=== PATIENT | male | born 1945 | race Caucasian/White ===

== ENCOUNTER 2016-10-22 16:19 | Emergency (ER) | payer MEDICARE, BC ==
[~2016-10-22] VITALS: Ht 182.9 cm; Wt 78.0 kg
[2016-10-22 16:23] VITALS: BP 138/65; PULSE 104; RESP 16; TEMP 98.7; O2SAT 99
--- NOTE | 2016-10-22 17:51 | PD ---
HPI Chief Complaint: Abnormal Results Time Seen by Provider: 17:43 Travel History International Travel<30 days: No Contact w/Intl Traveler<30days: No Traveled to known affect area: No History of Present Illness HPI This 71-year-old male was referred here by urgent care center because of a high white count. This gentleman has been having trouble with his left leg for a couple of weeks. He is visiting here from [place]. He flew from [place] a few days ago. He has developed redness and swelling of his left foot and ankle. He has seen a stock sheets cleaner inspector is [place] and was put in a walking boot. He had increasing pain on Saturday and the foot was quite red and swollen. He went to urgent care center and was started on Bactrim, Indocin and Ultram. He says the foot has gotten a bit better since then. There were unable to do blood work on Saturday so he was sent today for blood work. They have sent a copy of the blood work to us. His hemoglobin is 8.9 with a white count of 35, 000. He has 86% lymphs, 3% monocytes and absolute neutrophil count of 3000. His C-reactive protein is 145 and his Westergren sedimentation rate is 90. There is been no weight loss. He has had good exercise tolerance PFSH Social History Tobacco Use: No Allergies-Medications (Allergen,Severity, Reaction): Coded Allergies: No Known Allergies (Unverified , 10/22/16) Reported Meds & Prescriptions Reported Meds & Active Scripts Active Reported Tramadol (Tramadol HCl) 50 Mg Tab 50 Mg PO Q8H PRN Indomethacin 50 Mg Cap 50 Mg PO TID Take with food, milk, or antacids to decrease stomach adverse effects. Bactrim DS (Sulfamethoxazole-Trimethoprim) 800-160 Mg Tab 1 Tab PO BID Review of Systems General / Constitutional: No: Fever, Chills Eyes: No: Diploplia, Blurred Vision HENT: No: Headaches, Vertigo Cardiovascular: No: Chest Pain or Discomfort, Palpitations Respiratory: No: Cough, Shortness of Breath Gastrointestinal: No: Nausea, Vomiting Genitourinary: No: Urgency Musculoskeletal: Positive: Myalgias, Arthralgias, Pain Skin: Positive Rash Neurologic: No: Weakness, Dizziness Physical Exam Narrative GENERAL: Well-developed male SKIN: Focused skin assessment warm/dry. HEAD: Atraumatic. Normocephalic. EYES: Pupils equal and round. No scleral icterus. No injection or drainage. ENT: No nasal bleeding or discharge. Mucous membranes pink and moist. NECK: Trachea midline. No JVD. CARDIOVASCULAR: Regular rate and rhythm. No murmur appreciated. RESPIRATORY: No accessory muscle use. Clear to auscultation. Breath sounds equal bilaterally. GASTROINTESTINAL: Abdomen soft, non-tender, nondistended. Hepatic and splenic margins not palpable. MUSCULOSKELETAL: No obvious deformities. No clubbing. No cyanosis. No edema. There is erythema of the left foot and ankle. There appears to be some swelling most prominent at the ankle. He is able to flex and extend the ankle NEUROLOGICAL: Awake and alert. No obvious cranial nerve deficits. Motor grossly within normal limits. Normal speech. PSYCHIATRIC: Appropriate mood and affect; insight and judgment normal. Data Data Last Documented VS Vital Signs Date Time Temp Pulse Resp B/P Pulse Ox O2 Delivery O2 Flow Rate FiO2 10/22/16 16:23 98.7 104 16 138/65 99 Orders Complete Blood Count With Diff (10/22/16 17:44) Comprehensive Metabolic Panel (10/22/16 17:44) Blood Culture (10/22/16 17:44) Urinalysis - C+S If Indicated (10/22/16 17:44) Chest, Single Ap (10/22/16 17:44) Labs Laboratory Tests Test 10/22/16 10/22/16 18:00 18:10 Urine Collection Type CLEAN CATCH Urine Color YELLOW Urine Turbidity CLEAR Urine pH 6.0 Urine Specific [place] 1.022 Urine Protein NEG mg/dL Urine Glucose (UA) NEG mg/dL Urine Ketones NEG mg/dL Urine Occult Blood NEG Urine Nitrite NEG Urine Bilirubin NEG Urine Leukocyte Esterase NEG Urine WBC 0-2 /hpf Microscopic Urinalysis Comment CULT NOT INDICATED Urine Collection Time 1800 White Blood Count 42.8 TH/MM3 Red Blood Count 2.59 MIL/MM3 Hemoglobin 8.7 GM/DL Hematocrit 26.1 % Mean Corpuscular Volume 101.1 FL Mean Corpuscular Hemoglobin 33.5 PG Mean Corpuscular Hemoglobin 33.1 % Concent Red Cell Distribution Width 15.6 % Platelet Count 377 TH/MM3 Mean Platelet Volume 7.8 FL Neutrophils (%) (Auto) 6.5 % Lymphocytes (%) (Auto) 88.4 % Monocytes (%) (Auto) 4.0 % Eosinophils (%) (Auto) 0.1 % Basophils (%) (Auto) 1.0 % Neutrophils # (Auto) 2.8 TH/MM3 Lymphocytes # (Auto) 37.9 TH/MM3 Monocytes # (Auto) 1.7 TH/MM3 Eosinophils # (Auto) 0.0 TH/MM3 Basophils # (Auto) 0.4 TH/MM3 CBC Comment AUTO DIFF Sodium Level 139 MEQ/L Potassium Level 4.8 MEQ/L Chloride Level 106 MEQ/L Carbon Dioxide Level 24.8 MEQ/L Anion Gap 8 MEQ/L Blood Urea Nitrogen 17 MG/DL Creatinine 1.10 MG/DL Estimat Glomerular Filtration 66 ML/MIN Rate Random Glucose 127 MG/DL Calcium Level 8.9 MG/DL Total Bilirubin 0.2 MG/DL Aspartate Amino Transf 44 U/L (AST/SGOT) Alanine Aminotransferase 57 U/L (ALT/SGPT) Alkaline Phosphatase 126 U/L Total Protein 7.7 GM/DL Albumin 2.8 GM/DL [facility] Medical Decision Making Medical Screen Exam Complete: Yes Emergency Medical Condition: Yes Medical Record Reviewed: Yes Differential Diagnosis Differential includes septic arthritis, cellulitis, CLL Narrative Course Patient has a very high white count but there is a predominance of lymphocytes. I don't think that the ankle problem as the source of his elevation in white count. He is visiting here from [place]. He reports that the ankle is actually getting a little bit better. He has been on Bactrim, Indocin. This may represent gout. Repeat white count is 42,000. Again with a predominance of lymphocytes. I believe the gentleman most likely has chronic lymphocytic leukemia. Patient appears stable. He lives in [place] and will be back there and a week. I think it is reasonable for him to follow-up with his doctor in a week for further evaluation of this abnormality Diagnosis Primary Impression: Gout Qualified Code: M10.072 - Acute idiopathic gout of left ankle Additional Impression: suspect chronic lymphocytic leukemi Additional Instructions: Follow-up with your own doctor in a week Disposition: 01 DISCHARGE HOME Condition: Stable Andrey Toscano MD Oct 22, 2016 17:51
--- NOTE | 2016-10-22 17:59 | RADRPT ---
EXAM DATE/TIME: 10/22/2016 17:47 [facility] COMPARISON: No previous studies available for comparison. INDICATIONS : Fever, cough. MEDICAL HISTORY : None. SURGICAL HISTORY : None. ENCOUNTER: Initial ACUITY: 1 day PAIN SCORE: 0/10 LOCATION: Bilateral chest FINDINGS: A single view of the chest demonstrates the lungs to be symmetrically aerated without evidence of mas s, infiltrate or effusion. The cardiomediastinal contours are unremarkable. Osseous structures are intact. CONCLUSION: No evidence of acute cardiopulmonary disease. Wu Marx MD on October 22, 2016 at 17:57 Board Certified Radiologist. This report was verified electronically.
[2016-10-22] MEDS ORDERED: INDO50CA PO (18:22)
[2016-10-22] MEDS ORDERED: BACT800T5 PO (18:22)
[2016-10-22] MEDS ORDERED: TRAM50TA PO (18:22)
[2016-10-22 18:25] LABS: BLOOD, URINE NEG (NEG); GLUCOSE,URINE NEG (NEG); KETONE, URINE NEG (NEG); NITRITE,URINE NEG (NEG)
[2016-10-22 18:26] LABS: AUTOMATED NEUTROPHIL # 2.8 TH/MM3 (1.8-7.7); BASOPHIL # 0.4 TH/MM3 (0-0.2); EOSINOPHIL % 0.1 % (0.0-4.0); HEMATOCRIT 26.1 % (39.0-51.0); LYMPH % 88.4 % (9.0-44.0); LYMPHOCYTE # 37.9 TH/MM3 (1.0-4.8); MEAN CELL VOLUME 101.1 FL (80.0-100.0); MEAN CORPUSCULAR HEMOGLOBIN 33.5 PG (27.0-34.0); MEAN CORPUSCULAR HGB CONC 33.1 % (32.0-36.0); NEUT % 6.5 % (16.0-70.0); PLATELET COUNT 377 TH/MM3 (150-450); RED BLOOD COUNT 2.59 MIL/MM3 (4.50-5.90); RED CELL DISTRIBUTION WIDTH 15.6 % (11.6-17.2); WHITE BLOOD COUNT 42.8 TH/MM3 (4.0-11.0)
[2016-10-22 18:38] LABS: CHLORIDE 106 MEQ/L (98-107); POTASSIUM 4.8 MEQ/L (3.5-5.1); SODIUM (NA) 139 MEQ/L (136-145)
[2016-10-22 18:42] LABS: ANION GAP 8 MEQ/L (5-15); BICARBONATE 24.8 MEQ/L (21.0-32.0); BLOOD UREA NITROGEN 17 MG/DL (7-18)
[2016-10-22 18:45] LABS: ALT (GPT) 57 U/L (12-78); AST (GOT) 44 U/L (15-37); GLOMERULAR FILTRATION RATE 66 ML/MIN (>89)
[2016-10-22 18:47] LABS: TOTAL BILIRUBIN ADULT 0.2 MG/DL (0.2-1.0)
[2016-10-22 18:48] LABS: ALKALINE PHOSPHATASE 126 U/L (45-117)
[2016-10-22 18:54] LABS: COMMENT (UR) CULT NOT INDICATED; COMMENT2 (UR) MUCOUS PRESENT; CULTURE IF INDICATED CULT NOT INDICATED; METHOD OF COLLECTION CLEAN CATCH; URINE COLOR YELLOW (YELLW/STRAW); WBC, URINE 0-2 /hpf (0-5)
[2016-10-22 19:02] LABS: HEMO FLAGS AUTO DIFF
[2016-10-22 19:23] VITALS: BP 136/66; PULSE 89; RESP 18; O2SAT 98
[2016-10-22 20:00] LABS: BANDS 1 % (0-6); POLYS (SEG NEUTROPHILS) 12 % (16-70)
[2016-10-22 20:01] LABS: METAMYELOCYTES 2 % (0-1); NEUTROPHIL # MANUAL DIFF 6.4 TH/MM3 (1.8-7.7)
[2016-10-22 20:06] LABS: PLATELET ESTIMATE SMEAR NORMAL (NORMAL); PLATELET MORPHOLOGY NORMAL (NORMAL); SCAN/DIFF FINAL DIFF MANUAL
== END 2016-10-22 19:34 | disposition home or self-care (01) ==
LOC: PHED 16:19
DX: M10.072 Idiopathic gout, left ankle and foot (principal)
CPT/HCPCS: 71010; 80053; 81001; 85007; 85027; 87040; 99284